=== PATIENT | female | born 1985 | race African-American/Black ===

== ENCOUNTER 2023-09-15 08:51 | Emergency (ER) | payer SELFPAY ==
[~2023-09-15] VITALS: Ht 162.6 cm; Wt 84.1 kg
[2023-09-15 08:57] VITALS: BP 119/82; TEMP 98.4
[2023-09-15] MEDS ORDERED: AKTOB 5 ML5 ML OP (09:40)
[2023-09-15] MEDS ORDERED: PREDNISONE20 MG PO (09:40)
[2023-09-15] MEDS ORDERED: CEFTIN 250250 MG/TAB PO (09:40)
[2023-09-15 09:48] VITALS: PULSE 89
== END 2023-09-15 09:49 | disposition home or self-care (01) ==
LOC: COL.ER 08:51
DX: J32.0 Chronic maxillary sinusitis (principal); H10.9 Unspecified conjunctivitis